=== PATIENT | male | born 1970 | race Caucasian/White ===

== ENCOUNTER 2018-03-01 17:00 | Inpatient (IN) | payer MEDICAID ==
[~2018-03-01] VITALS: Ht 162.6 cm; Wt 105.0 kg
[2018-03-01 17:47] LABS: PLATELET COUNT 288 x10^3mcL (130-400); RED CELL DISTRIBUTION WIDTH 12.8 % (11.5-14.5)
[2018-03-01 17:53] LABS: BASOPHIL % 0 % (0-2)
[2018-03-01 18:14] LABS: CALCIUM 8.4 mg/dL (8.5-10.1); CARBON DIOXIDE 30.4 mmol/L (21-32); CHLORIDE SERUM 101 mmol/L (98-107); CREATININE SERUM 1.6 mg/dL (0.7-1.3); GFR1 49 mL/min; GLUCOSE SERUM 135 mg/dL (74-106); SODIUM SERUM 141 mmol/L (136-145)
[2018-03-01 18:27] LABS: ALBUMIN 3.8 g/dL (3.4-5.0); ALKALINE PHOSPHATASE 88 U/L (46-116); ALT/SGPT 46 U/L (16-63); AST/SGOT 25 U/L (15-37); BILIRUBIN TOTAL 1.08 mg/dL (0.20-1.00); FREE T4 0.99 ng/dL (0.76-1.46); LIPASE 87 IU/L (73-393); TOTAL PROTEIN, SERUM 8.2 g/dL (6.4-8.2)
[2018-03-01 19:50] LABS: CHOLESTEROL/HDL RATIO 3.3; MAGNESIUM 1.6 mg/dL (1.8-2.4); PHOSPHOROUS 3.5 mg/dL (2.5-4.9)
[2018-03-01 19:56] LABS: T3 TOTAL 1.05 ng/mL
[2018-03-01 20:00] LABS: FREE T4 0.99 ng/dL (0.76-1.46); FREE THYROXINE INDEX 2.8 ug/dL (1.4-4.5); T4(THYROXINE) 8.5 ug/dL (4.7-13.3)
[2018-03-01 22:39] VITALS: BP 122/77
[2018-03-01 23:23] VITALS: BP 122/77
[2018-03-02 01:22] LABS: microscopic required? NO
[2018-03-02 02:11] LABS: urine erythrocyte NEGATIVE (NEGATIVE)
[2018-03-02 02:23] LABS: AMPHETAMINE QUAL UR POSITIVE (See below)
[2018-03-02 05:49] LABS: CALCIUM 7.9 mg/dL (8.5-10.1); CARBON DIOXIDE 23.4 mmol/L (21-32); CHLORIDE SERUM 99 mmol/L (98-107); CREATININE SERUM 1.3 mg/dL (0.7-1.3); GFR1 > 60 mL/min; GLUCOSE SERUM 118 mg/dL (74-106); SODIUM SERUM 131 mmol/L (136-145)
[2018-03-02 05:52] LABS: BASOPHIL % 0.1 % (0-2); PLATELET COUNT 255 x10^3mcL (130-400); RED CELL DISTRIBUTION WIDTH 12.2 % (11.5-14.5)
[2018-03-02 07:51] VITALS: BP 104/70
[2018-03-02 11:01] VITALS: BP 89/57
[2018-03-02 15:15] VITALS: BP 125/77
[2018-03-02 21:38] VITALS: BP 110/79
[2018-03-02 23:09] VITALS: Ht 162.6 cm; Wt 105.0 kg
[2018-03-03 05:40] VITALS: BP 116/65
== END 2018-03-03 08:10 | disposition left against medical advice (07) | DRG 242 ==
LOC: ED 17:00 → IC 19:45 → DU 03-02 18:28
PROVIDERS: Emergency Medicine; Family Medicine; Internal Medicine Gastroenterology
PROC: 0DB68ZX Excision of Stomach, Via Natural or Artificial Opening Endoscopic, Diagnostic (ICD-10-PCS; principal; 2018-03-02 10:00)
PROC: 0W3P8ZZ Control Bleeding in Gastrointestinal Tract, Via Natural or Artificial Opening Endoscopic (ICD-10-PCS; 2018-03-02 10:00)
DX: K22.6 Gastro-esophageal laceration-hemorrhage syndrome (principal); N17.0 Acute kidney failure with tubular necrosis; K56.7 Ileus, unspecified; E83.42 Hypomagnesemia; Z68.42 Body mass index [BMI] 45.0-49.9, adult; K76.0 Fatty (change of) liver, not elsewhere classified; K21.0 Gastro-esophageal reflux disease with esophagitis; E78.5 Hyperlipidemia, unspecified; R73.03 Prediabetes; F11.10 Opioid abuse, uncomplicated; F15.10 Other stimulant abuse, uncomplicated; F10.11 Alcohol abuse, in remission; E66.9 Obesity, unspecified
CPT/HCPCS: 43235; 82962; 83880; 84439; C9113; G0480; J1200; J1610; J1956; J2250; J2310; J2354; J2405; J2765; J3010; J3475; J3490; J7030; J7040; Q0092; Q9967

== ENCOUNTER 2019-05-27 00:58 | Emergency (ER) | payer SELFPAY ==
[~2019-05-27] VITALS: Ht 172.7 cm; Wt 103.0 kg
[2019-05-27 01:03] VITALS: Ht 172.7 cm; Wt 103.0 kg
[2019-05-27 02:58] VITALS: BP 120/76
== END 2019-05-27 02:40 | disposition home or self-care (01) ==
LOC: ED 00:58
DX: S05.01XA Injury of conjunctiva and corneal abrasion without foreign body, right eye, initial encounter (principal); X58.XXXA Exposure to other specified factors, initial encounter; Y93.89 Activity, other specified; Y92.89 Other specified places as the place of occurrence of the external cause; Y99.8 Other external cause status